=== PATIENT | male | born 1950 | race Caucasian/White ===

== ENCOUNTER 2017-03-17 09:06 | Inpatient (IN) | payer OTHER, MEDICARE ==
[2017-03-17] VITALS (16 sets, daily range): BP systolic 140–162; BP diastolic 75–89; PULSE 76–160; RESP 15–20; TEMP 97.4–98.4; O2SAT 96–99
[~2017-03-17] VITALS: Ht 188 cm; Wt 108.4 kg
[~2017-03-17 09:06] MED LIST: BACT800T5 PO; COLL30OI3 TOP; HYDRA50 PO; LACT PO; LISI-360 PO; LORTA5 PO; METO100 PO; THIA100T PO
[2017-03-17] MEDS ORDERED: AMLO5TAB2 PO (09:24)
[2017-03-17] MEDS ORDERED: HYDR50TA15 PO (09:24)
[2017-03-17] MEDS ORDERED: LISI10TA3 PO (09:24)
[2017-03-17] MEDS ORDERED: DILTIAZEM HCL 25 MG/5 ML VIAL IV ONE (09:30)
[2017-03-17] MEDS ORDERED: SODIUM CHLOR 0.9% 1000 ML INJ 1,000 ML IV ONE ×2 (09:30→10:45)
[2017-03-17] MEDS ORDERED: SODIUM CHLORIDE 0.9% FLUSH 10 ML FLUSH IVF PRN ×2 (09:30)
--- NOTE | 2017-03-17 09:37 | PD ---
HPI Chief Complaint: Seizure Time Seen by Provider: 09:16 Travel History International Travel<30 days: No Contact w/Intl Traveler<30days: No Traveled to known affect area: No History of Present Illness HPI The patient is a 66-year-old male who presents emergency department via EMS for possible seizure. According to EMS the patient was coming into the house, from outside, when the saw the patient followed the ground and have a possible seizure. The states the patient's seizure lasted approximately 10-15 minutes. The states the patient has a history of seizures, was on Neurontin in the past, however, the physician advised in the stop taking it for months ago. The patient does have a history of subdural hemorrhage with subsequent evacuation by Dr. Lucio, according to the , last year. EMS noted that the patient was postictal and also was in atrial fibrillation with RVR. The patient denies any history of A. fib with RVR. Upon arrival the patient is alert and oriented in one out of 4, does follow simple commands. He is a somewhat limited historian, however, history is obtained from the . The and the patient both deny any previous history of atrial fibrillation. The patient's primary physician is Dr. Munoz. [facility] Past Medical History Arthritis: No Asthma: No Blood Disorders: No Heart Rhythm Problems: No Cancer: No Cardiovascular Problems: Yes (HTN ) Chest Pain: No COPD: No Cerebrovascular Accident: No Diabetes: No Endocrine: No GERD: No Genitourinary: No Hypertension: Yes Immune Disorder: No Kidney Stones: No Musculoskeletal: No Neurologic: No Psychiatric: No Reproductive: No Respiratory: Yes Renal Failure: No Seizures: No Sleep Apnea: No Thyroid Disease: No Ulcer: No Past Surgical History Abdominal Surgery: No AICD: No Arteriovenous Shunt: No Cardiac Surgery: No Ear Surgery: No Eye Surgery: No Genitourinary Surgery: No Gynecologic Surgery: No Insulin Pump: No Joint Replacement: No Neurologic Surgery: Yes (BRAIN SURGERY (NOV 2015)) Oral Surgery: Yes (T&A) Pacemaker: No Thoracic Surgery: No Other Surgery: Yes (Brain surgery) Social History Alcohol Use: Yes (10 OZ. 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 fib according to EMS, patient denies history of), No: Chest Pain or Discomfort Respiratory: No: Shortness of Breath Gastrointestinal: No: Nausea, Vomiting, Abdominal Pain Neurologic: Positive: Change in Mentation, Seizures Psychiatric: Positive: Substance Abuse (daily alcohol use, 3-4 drinks per patient) Physical Exam Narrative GENERAL: Awake, alert, 66-year-old male who appears his stated age and is in no acute respiratory distress. SKIN: Focused skin assessment warm/dry. HEAD: Atraumatic. Normocephalic. EYES: Pupils equal and round. Pupils are 3 mm bilateral and reactive. ENT: No nasal bleeding or discharge. Mucous membranes pink and moist. NECK: Trachea midline. No JVD. CARDIOVASCULAR: Irregularly irregular, tachycardic with a heart rate in the 160s. RESPIRATORY: No accessory muscle use. Diminished breath sounds in the bases bilateral. GASTROINTESTINAL: Abdomen soft, non-tender, nondistended. No rebound tenderness. MUSCULOSKELETAL: No obvious deformities. No clubbing. No cyanosis. No edema. Moves all 4 extremities. NEUROLOGICAL: Awake and alert. No obvious cranial nerve deficits. Motor grossly within normal limits. Normal speech. 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 PSYCHIATRIC: Appears postictal. Data Data Last Documented VS Vital Signs Date Time Temp Pulse Resp B/P Pulse Ox O2 Delivery O2 Flow Rate FiO2 03/17/17 10:30 146 15 151/78 96 Nasal Cannula 2 03/17/17 09:15 98.0 Orders Complete Blood Count With Diff (03/17/17 09:30) Alcohol (Ethanol) (03/17/17 09:30) Drug Screen, Random Urine (03/17/17 09:30) Blood Culture (03/17/17 09:30) Electrocardiogram (03/17/17 ) Ct Brain W/O Iv Contrast(Rout) (03/17/17 ) Blood Glucose (03/17/17 09:30) Ecg Monitoring (03/17/17 09:30) Iv Access Insert/Monitor (03/17/17 09:30) Oximetry (03/17/17 09:30) Comprehensive Metabolic Panel (03/17/17 09:30) Sodium Chlor 0.9% 1000 Ml Inj (Ns 1000 M (03/17/17 09:30) Sodium Chloride 0.9% Flush (Ns Flush) (03/17/17 09:30) Ua Includes Microscopic (03/17/17 09:30) Diltiazem Inj (Cardizem Inj) (03/17/17 09:30) Sodium Chloride 0.9% Flush (Ns Flush) (03/17/17 09:30) Lactic Acid (03/17/17 09:30) Diltiazem Inj (Cardizem Inj) (03/17/17 09:30) Chest, Single Ap (03/17/17 ) Troponin I (03/17/17 10:34) Creatine Kinase (Cpk) (03/17/17 10:34) Sodium Chlor 0.9% 1000 Ml Inj (Ns 1000 M (03/17/17 10:45) Lorazepam Inj (Ativan Inj) (03/17/17 10:45) Admit Order (Ed Use Only) (03/17/17 10:58) Diet Npo (03/17/17 Lunch) Vital Signs (Adult) MARK.Q4H (03/17/17 10:55) Neuro Checks . ORDERED (03/17/17 10:55) ^ Seizure Precautions (03/17/17 10:55) Scd Bilateral/Knee High MARK.QSHIFT (03/17/17 10:55) Sodium Chlor 0.9% 1000 Ml Inj (Ns 1000 M (03/17/17 11:00) Ondansetron Inj (Zofran Inj) (03/17/17 11:00) Consult Neurology (03/17/17 ) Echo 2d Comp W/Dopp(Routine) (03/17/17 ) Thyroid Stimulating Hormone (03/17/17 10:55) Basic Metabolic Panel (Bmp) (03/18/17 06:00) Lactic Acid (03/18/17 06:00) Lorazepam Inj (Ativan Inj) (03/17/17 11:00) Labs Laboratory Tests Test 03/17/17 03/17/17 09:35 09:40 White Blood Count 5.8 TH/MM3 Red Blood Count 3.78 MIL/MM3 Hemoglobin 13.9 GM/DL Hematocrit 39.3 % Mean Corpuscular Volume 103.9 FL Mean Corpuscular Hemoglobin 36.7 PG Mean Corpuscular Hemoglobin 35.4 % Concent Red Cell Distribution Width 12.9 % Platelet Count 193 TH/MM3 Mean Platelet Volume 7.9 FL Neutrophils (%) (Auto) 66.1 % Lymphocytes (%) (Auto) 27.1 % Monocytes (%) (Auto) 5.3 % Eosinophils (%) (Auto) 0.8 % Basophils (%) (Auto) 0.7 % Neutrophils # (Auto) 3.8 TH/MM3 Lymphocytes # (Auto) 1.6 TH/MM3 Monocytes # (Auto) 0.3 TH/MM3 Eosinophils # (Auto) 0.0 TH/MM3 Basophils # (Auto) 0.0 TH/MM3 CBC Comment DIFF FINAL Differential Comment Sodium Level 142 MEQ/L Potassium Level 3.4 MEQ/L Chloride Level 106 MEQ/L Carbon Dioxide Level 18.3 MEQ/L Anion Gap 18 MEQ/L Blood Urea Nitrogen 11 MG/DL Creatinine 1.36 MG/DL Estimat Glomerular Filtration 52 ML/MIN Rate Random Glucose 113 MG/DL Calcium Level 9.5 MG/DL Total Bilirubin 0.5 MG/DL Aspartate Amino Transf 35 U/L (AST/SGOT) Alanine Aminotransferase 32 U/L (ALT/SGPT) Alkaline Phosphatase 43 U/L Total Creatine Kinase 99 U/L Troponin I LESS THAN 0.02 NG/ML Total Protein 8.0 GM/DL Albumin 4.1 GM/DL Ethyl Alcohol Level LESS THAN 3 MG/DL Lactic Acid Level 6.9 mmol/L [facility] Medical Decision Making Medical Screen Exam Complete: Yes Emergency Medical Condition: Yes Medical Record Reviewed: Yes Interpretation(s) EKG reveals atrial fibrillation with RVR, rate 160. Last Impressions Head CT 03/17/17 0000 Signed Impressions: Service Date/Time: Friday, March 17, 2017 10:05 - CONCLUSION: 1. Postsurgical changes status post left frontal parietal craniotomy with areas of encephalomalacia now noted. 2. The ventricular system is more prominent no definite acute hydrocephalus or hemorrhage. Kamlesh Birch MD Chest x-ray unremarkable Laboratory Tests Test 03/17/17 03/17/17 09:35 09:40 White Blood Count 5.8 TH/MM3 Red Blood Count 3.78 MIL/MM3 Hemoglobin 13.9 GM/DL Hematocrit 39.3 % Mean Corpuscular Volume 103.9 FL Mean Corpuscular Hemoglobin 36.7 PG Mean Corpuscular Hemoglobin 35.4 % Concent Red Cell Distribution Width 12.9 % Platelet Count 193 TH/MM3 Mean Platelet Volume 7.9 FL Neutrophils (%) (Auto) 66.1 % Lymphocytes (%) (Auto) 27.1 % Monocytes (%) (Auto) 5.3 % Eosinophils (%) (Auto) 0.8 % Basophils (%) (Auto) 0.7 % Neutrophils # (Auto) 3.8 TH/MM3 Lymphocytes # (Auto) 1.6 TH/MM3 Monocytes # (Auto) 0.3 TH/MM3 Eosinophils # (Auto) 0.0 TH/MM3 Basophils # (Auto) 0.0 TH/MM3 CBC Comment DIFF FINAL Differential Comment Sodium Level 142 MEQ/L Potassium Level 3.4 MEQ/L Chloride Level 106 MEQ/L Carbon Dioxide Level 18.3 MEQ/L Anion Gap 18 MEQ/L Blood Urea Nitrogen 11 MG/DL Creatinine 1.36 MG/DL Estimat Glomerular Filtration 52 ML/MIN Rate Random Glucose 113 MG/DL Calcium Level 9.5 MG/DL Total Bilirubin 0.5 MG/DL Aspartate Amino Transf 35 U/L (AST/SGOT) Alanine Aminotransferase 32 U/L (ALT/SGPT) Alkaline Phosphatase 43 U/L Total Protein 8.0 GM/DL Albumin 4.1 GM/DL Ethyl Alcohol Level LESS THAN 3 MG/DL Lactic Acid Level 6.9 mmol/L Differential Diagnosis Differential diagnosis includes subarachnoid hemorrhage, subdural hemorrhage, atrial fibrillation with RVR, holiday heart, seizure, postictal, electrolyte abnormality, alcohol withdrawal. Narrative Course IV was established, labs are drawn and sent, and the patient was placed on cardiac telemetry monitoring and continuous pulse oximetry monitoring. EKG was ordered and interpreted. Chest x-ray was obtained. The patient received Cardizem 20 mg intravenously by EMS prior to arrival, however, continue to have A. fib with RVR. Therefore, patient was administered Cardizem 20 mg intravenously once again and placed on a Cardizem drip with IV fluid bolus. CT of the brain was ordered. CT of the brain was negative except for postoperative changes. Lactic acid is elevated at 6.9, most likely related to the patient's seizure. The patient was placed on a Cardizem drip, was increased to 10 as the patient continued be tachycardic, his heart rate came down into the 120s. The patient may have alcohol withdrawal related seizure with secondary atrial fibrillation with RVR, holiday heart, and will need admission for rate control. As patient has new onset atrial fibrillation with RVR, patient will need echocardiogram, may benefit from CIWA precautions. I discussed the patient with the [facility] physician, Dr. Patel, who agrees with admission. Critical Care Narrative Aggregate critical care time was 40 minutes. Time to perform other separately billable procedures was not included in the critical care time. My time did not include minutes spent treating any other patients simultaneously or on activities that did not directly contribute to the patient's treatment. The services I provided to this patient were to treat and/or prevent clinically significant deterioration that could result in: Arrhythmia, anoxia, hypoxia, cardiomyopathy, congestive heart failure, pulmonary edema, . I provided critical care services requiring my management, as noted below: Chart data review, documentation time, medication orders and management, vital sign assessments/reviewing monitor data, ordering and reviewing lab tests, ordering and interpreting/reviewing x-rays and diagnostic studies, care of the patient and discussion of the patient with the admitting physicians. Physician Communication Physician Communication I discussed the patient with Dr. Patel who agrees with admission. Diagnosis Primary Impression: Atrial fibrillation with rapid ventricular response Additional Impressions: Seizure Lactic acidosis Admitting Information Admitting Physician Requests: Admit Condition: Stable Chase Al MD Mar 17, 2017 09:37
[2017-03-17 10:02] LABS: AUTOMATED NEUTROPHIL # 3.8 TH/MM3 (1.8-7.7); BASOPHIL % 0.7 % (0.0-2.0); EOSINOPHIL % 0.8 % (0.0-4.0); HEMATOCRIT 39.3 % (39.0-51.0); HEMO FLAGS DIFF FINAL; LYMPH % 27.1 % (9.0-44.0); LYMPHOCYTE # 1.6 TH/MM3 (1.0-4.8); MEAN CELL VOLUME 103.9 FL (80.0-100.0); MEAN CORPUSCULAR HEMOGLOBIN 36.7 PG (27.0-34.0); MEAN CORPUSCULAR HGB CONC 35.4 % (32.0-36.0); MONO % 5.3 % (0.0-8.0); NEUT % 66.1 % (16.0-70.0); PLATELET COUNT 193 TH/MM3 (150-450); RED BLOOD COUNT 3.78 MIL/MM3 (4.50-5.90); RED CELL DISTRIBUTION WIDTH 12.9 % (11.6-17.2); WHITE BLOOD COUNT 5.8 TH/MM3 (4.0-11.0)
[2017-03-17] MEDS: DILTIAZEM INJ 125 MG in SODIUM CHLORIDE 0.9% INJ 100 ML IV SCH ×2 (10:04→22:14)
[2017-03-17 10:19] LABS: ALT (GPT) 32 U/L (12-78); ANION GAP 18 MEQ/L (5-15); AST (GOT) 35 U/L (15-37); BICARBONATE 18.3 MEQ/L (21.0-32.0); BLOOD UREA NITROGEN 11 MG/DL (7-18); CHLORIDE 106 MEQ/L (98-107); GLOMERULAR FILTRATION RATE 52 ML/MIN (>89); POTASSIUM 3.4 MEQ/L (3.5-5.1); SODIUM (NA) 142 MEQ/L (136-145)
--- NOTE | 2017-03-17 10:19 | RADRPT ---
EXAM DATE/TIME: 03/17/2017 10:05 [facility] COMPARISON: CT BRAIN W/O CONTRAST, January 24, 2016, 4:25. INDICATIONS : Status changes and possible seizure history of intracranial hemorrhage in January of 2016. RADIATION DOSE: 44.19 CTDIvol (mGy) MEDICAL HISTORY : Cardiovascular disease. Hypertension. SURGICAL HISTORY : brain surgery ENCOUNTER: Initial ACUITY: 1 day PAIN SCALE: 0/10 LOCATION: cranial TECHNIQUE: Multiple contiguous axial images were obtained of the head. Using automated exposure control and adj ustment of the mA and/or kV according to patient size, radiation dose was kept as low as reasonably a chievable to obtain optimal diagnostic quality images. FINDINGS: CEREBRUM: There postsurgical changes status post left frontal parietal craniotomy. There are areas of encephalo malacia involving the left frontal and temporal lobes. Mild to moderate atrophic changes noted with s ulcal prominence. The ventricular system is more prominent than on the prior exam. There is no defini te acute hydrocephalus. No evidence of midline shift, mass lesion, hemorrhage or acute infarction. N o extra-axial fluid collections are seen. POSTERIOR FOSSA: The cerebellum and brainstem are intact. The 4th ventricle is midline. The cerebellopontine angle i s unremarkable. EXTRACRANIAL: The visualized portion of the orbits is intact. SKULL: The calvaria is intact. No evidence of skull fracture. CONCLUSION: 1. Postsurgical changes status post left frontal parietal craniotomy with areas of encephalomalacia n ow noted. 2. The ventricular system is more prominent no definite acute hydrocephalus or hemorrhage. Kamlesh Birch MD on March 17, 2017 at 10:15 Board Certified Radiologist. This report was verified electronically.
[2017-03-17 10:22] LABS: ALKALINE PHOSPHATASE 43 U/L (45-117); TOTAL BILIRUBIN ADULT 0.5 MG/DL (0.2-1.0)
[2017-03-17] MEDS ORDERED: LORazepam 2 MG/ML VIAL IV PUSH ONE (10:45)
[2017-03-17] MEDS ORDERED: LORazepam 2 MG/ML VIAL IV PUSH PRN ×5 (11:00→13:15)
[2017-03-17] MEDS ORDERED: ONDANSETRON HCL 4 MG/2 ML VIAL IV PUSH PRN (11:00)
--- NOTE | 2017-03-17 11:10 | RADRPT ---
EXAM DATE/TIME: 03/17/2017 10:07 [facility] COMPARISON: CHEST SINGLE AP, February 09, 2016, 9:30. INDICATIONS : Chest pain and short of breath. MEDICAL HISTORY : None. SURGICAL HISTORY : None. ENCOUNTER: Initial ACUITY: 1 day PAIN SCORE: 8/10 LOCATION: Bilateral chest FINDINGS: A single view of the chest demonstrates the lungs to be symmetrically aerated without evidence of mas s, infiltrate or effusion. The cardiomediastinal contours are unremarkable. Old injury distal left c lavicle. CONCLUSION: No acute disease. Gildardo Merino MD on March 17, 2017 at 11:07 Board Certified Radiologist. This report was verified electronically.
[2017-03-17 11:22] LABS: CREATINE KINASE 99 U/L (39-308)
[2017-03-17 11:53] LABS: BACTERIA, URINE OCC /hpf; BLOOD, URINE NEG (NEG); GLUCOSE,URINE NEG (NEG); HYALINE CAST, URINE 1 /lpf (RARE); KETONE, URINE 80 mg/dL (NEG); MUCUS URINE FEW /lpf (OCC); NITRITE,URINE NEG (NEG); PH, URINE 5.5 (5.0-8.5); URINE COLOR YELLOW (YELLW/STRAW)
[2017-03-17 11:54] LABS: AMPHETAMINE, URINE NEG (NEG); BARBITURATES, URINE NEG (NEG); COCAINE, URINE NEG (NEG)
[2017-03-17] MEDS: SODIUM CHLOR 0.9% 1000 ML INJ 1,000 ML IV SCH ×2 (11:57→20:52)
--- NOTE | 2017-03-17 13:10 | HHI.HP ---
[facility] Primary Care Physician Luis Felipe Munoz MD Admission Diagnosis atrial fibrillation with RVR, seizure, lactic acidosis Diagnoses: (1) Seizure Diagnosis: Principal (2) Atrial fibrillation with rapid ventricular response Diagnosis: Principal Chief Complaint: ' I had a seizure'. Travel History International Travel<30 Days: No Contact w/Intl Traveler <30 Da: No Traveled to Known Affected Are: No History of Present Illness patient is a 66 y/o male with history of seizure- s/p brain surgery about a year ago, and hypertension, was brought to ER after he had a seizure earlier. according to ER, he was coming back to the house from outside when he had a witnessed seizure. apparently the seizure lasted for about ten minutes. he denies tongue-biting or urinary incontinence.he says that he was on ' seizure medication' till two months ago when he stopped taking it. he was in atrial fibrillation with rapid rate upon arrival to ER. he was awake,alert and oriented at the time of my evaluation. he denies any chest pain or sob. he admits to drinking four glasses of rum daily. Review of Systems Constitutional: DENIES: Fever, Weight loss, Chills, Night Sweats Eyes: DENIES: Blurred vision, Diplopia, Vision loss, Double Vision Ears, nose, mouth, throat: DENIES: Tinnitus, Vertigo, Throat pain, Epistaxis Respiratory: DENIES: Apneas, Cough, Snoring, Wheezing, Hemoptysis, Sputum production, Shortness of breath Cardiovascular: DENIES: Chest pain, Palpitations, Syncope, Dyspnea on Exertion , PND, Lower Extremity Edema, Orthopnea, Claudication Gastrointestinal: DENIES: Abdominal pain, Black stools, Bloody stools, Constipation, Diarrhea, Nausea, Vomiting, Difficulty Swallowing, Anorexia Genitourinary: DENIES: Urinary frequency, Urgency, Hematuria, Dysuria Musculoskeletal: DENIES: Joint pain, Muscle aches, Stiffness, Joint Swelling Integumentary: DENIES: Rash Neurologic: COMPLAINS OF: Seizures, DENIES: Abnormal gait, Headache, Localized weakness, Paresthesias, Speech Problems, Tremor, Poor Balance Psychiatric: DENIES: Anxiety, Confusion, Mood changes, Depression, Hallucinations, Agitation, Suicidal Ideation, Homicidal Ideation, Delusions Past Family Social History Past Medical History seizure hypertension Past Surgical History brain surgery; evacuation of intracerebral hematoma Reported Medications Lisinopril 10 Mg Tab 10 Mg PO BID Hydralazine (Hydralazine HCl) 50 Mg Tab 50 Mg PO TID Take with a meal Amlodipine (Amlodipine Besylate) 5 Mg Tab 5 Mg PO DAILY Allergies: Coded Allergies: *MDRO Multi-Drug Resistant Organism (Verified Adverse Reaction, Unknown, ) MRSA (ankle-08/23/16) Active Ordered Medications Current Medications Sodium Chloride (NS 1000 ml Inj) 1,000 ml @ 1,000 mls/hr Q1H ONCE IV Last administered on 03/17/17 09:43; Start 03/17/17 at 09:30; Stop 03/17/17 at 10:29 ; Status DC Sodium Chloride 2 ml 2 ml UNSCH PRN IVF FLUSH AFTER USING IV ACCESS; Start at 09:30 Diltiazem HCl/ Sodium Chloride (Cardizem Inj/NS Inj) 125 ml @ 0 mls/hr TITRATE IV Last administered on 03/17/17 10:04; Start 03/17/17 at 09:30 Sodium Chloride (NS Flush) 2 ml UNSCH PRN IVF FLUSH AFTER USING IV ACCESS; Start 03/17/17 at 09:30 Diltiazem HCl 20 mg 20 mg ONCE ONCE IV Last administered on 03/17/17 09:43; Start 03/17/17 at 09:30; Stop 03/17/17 at 09:33; Status DC Sodium Chloride (NS 1000 ml Inj) 1,000 ml @ 999 mls/hr BOLUS ONCE IV Last administered on 03/17/17 10:44; Start 03/17/17 at 10:45; Stop 03/17/17 at 11:45 ; Status DC Lorazepam 1 mg 1 mg ONCE ONCE IV PUSH Last administered on 03/17/17 10:44; Start 03/17/17 at 10:45; Stop 03/17/17 at 10:46; Status DC Sodium Chloride (NS 1000 ml Inj) 1,000 ml @ 100 mls/hr Q10H IV Last administered on 03/17/17 11:57; Start 03/17/17 at 11:00 Ondansetron HCl (Zofran Inj) 4 mg Q8HR PRN IV PUSH NAUSEA; Start 03/17/17 at 11 :00 Lorazepam (Ativan Inj) 1 mg Q15M PRN IV PUSH SEIZURE; Start 03/17/17 at 11:00 Family History not significant. Social History doesn't smoke.drinks four glasses of rum daily. Physical Exam Vital Signs Vital Signs Date Time Temp Pulse Resp B/P Pulse Ox O2 Delivery O2 Flow Rate FiO2 03/17/17 11:30 120 16 162/80 98 Nasal Cannula 2 03/17/17 10:30 146 15 151/78 96 Nasal Cannula 2 03/17/17 09:24 97 Nasal Cannula 2 03/17/17 09:18 97 Nasal Cannula 2 03/17/17 09:18 150 16 97 Nasal Cannula 2 03/17/17 09:15 98.0 160 16 146/89 98 Physical Exam GENERAL: This is a well-nourished, well-developed patient, in no apparent distress. SKIN: No rashes, ecchymoses or lesions. Cool and dry. HEAD: Atraumatic. Normocephalic. No temporal or scalp tenderness. EYES: Pupils equal round and reactive. Extraocular motions intact. No scleral icterus. No injection or drainage. ENT: Nose without bleeding, purulent drainage or septal hematoma. Throat without erythema, tonsillar hypertrophy or exudate. Uvula midline. Airway patent. NECK: Trachea midline. No JVD or lymphadenopathy. Supple, nontender, no meningeal signs. CARDIOVASCULAR:irregular- tachycardic RESPIRATORY: Clear to auscultation. Breath sounds equal bilaterally. No wheezes , rales, or rhonchi. GASTROINTESTINAL: Abdomen soft, non-tender, nondistended. No hepato-splenomegaly , or palpable masses. No guarding. MUSCULOSKELETAL: Extremities without clubbing, cyanosis, or edema. No joint tenderness, effusion, or edema noted. No calf tenderness. Negative Homans sign bilaterally. NEUROLOGICAL: Awake and alert. Cranial nerves II through XII intact. Motor and sensory grossly within normal limits. Five out of 5 muscle strength in all muscle groups. Normal speech. Laboratory Laboratory Tests Test 03/17/17 03/17/17 03/17/17 09:35 09:40 11:30 White Blood Count 5.8 Red Blood Count 3.78 Hemoglobin 13.9 Hematocrit 39.3 Mean Corpuscular Volume 103.9 Mean Corpuscular Hemoglobin 36.7 Mean Corpuscular Hemoglobin 35.4 Concent Red Cell Distribution Width 12.9 Platelet Count 193 Mean Platelet Volume 7.9 Neutrophils (%) (Auto) 66.1 Lymphocytes (%) (Auto) 27.1 Monocytes (%) (Auto) 5.3 Eosinophils (%) (Auto) 0.8 Basophils (%) (Auto) 0.7 Neutrophils # (Auto) 3.8 Lymphocytes # (Auto) 1.6 Monocytes # (Auto) 0.3 Eosinophils # (Auto) 0.0 Basophils # (Auto) 0.0 CBC Comment DIFF FINAL Differential Comment Sodium Level 142 Potassium Level 3.4 Chloride Level 106 Carbon Dioxide Level 18.3 Anion Gap 18 Blood Urea Nitrogen 11 Creatinine 1.36 Estimat Glomerular Filtration 52 Rate Random Glucose 113 Calcium Level 9.5 Total Bilirubin 0.5 Aspartate Amino Transf 35 (AST/SGOT) Alanine Aminotransferase 32 (ALT/SGPT) Alkaline Phosphatase 43 Total Creatine Kinase 99 Troponin I LESS THAN 0.02 Total Protein 8.0 Albumin 4.1 Ethyl Alcohol Level LESS THAN 3 Lactic Acid Level 6.9 Urine Color YELLOW Urine Turbidity CLEAR Urine pH 5.5 Urine Specific [place] 1.013 Urine Protein TRACE Urine Glucose (UA) NEG Urine Ketones 80 Urine Occult Blood NEG Urine Nitrite NEG Urine Bilirubin NEG Urine Urobilinogen LESS THAN 2.0 Urine Leukocyte Esterase NEG Urine RBC LESS THAN 1 Urine WBC 1 Urine Bacteria OCC Urine Hyaline Casts 1 Urine Mucus FEW Urine Sperm RARE Urine Opiates Screen NEG Urine Barbiturates Screen NEG Urine Amphetamines Screen NEG Urine Benzodiazepines Screen NEG Urine Cocaine Screen NEG Urine Cannabinoids Screen NEG Date/Time Procedure Status Source Growth 03/17/17 09:40 Aerobic Blood Culture Received Blood Peripheral Pending 03/17/17 09:40 Anaerobic Blood Culture Received Blood Peripheral Pending Result Diagram: 03/17/17 0935 03/17/1735 Imaging Last Impressions Head CT 03/17/17 0000 Signed Impressions: Service Date/Time: Friday, March 17, 2017 10:05 - CONCLUSION: 1. Postsurgical changes status post left frontal parietal craniotomy with areas of encephalomalacia now noted. 2. The ventricular system is more prominent no definite acute hydrocephalus or hemorrhage. Kamlesh Birch MD Chest X-Ray 03/17/17 0000 Signed Impressions: Service Date/Time: Friday, March 17, 2017 10:07 - CONCLUSION: No acute disease. Gildardo Merino MD EKG; atrial fibrillation with rapid ventricular response Assessment and Plan Assessment and Plan A/P - possible seizure with history of brain surgery about a year ago and history of alcohol abuse continue with seizure precautions- consult neurology- check EEG- ativan as needed -atrial fibrillation with rapid ventricular response started on Cardizem drip- start on PO metoprolol and continue to monitor - check echo and TSH- consult cardiology. -lactic acidosis- likely due to seizure- will continue IV fluid- -acute kidney injury; started on IV fluid- will monitor the renal function; BMP in am. -alcohol abuse; start on CIWA protocol- watch for alcohol withdrawal- -mild hypokalemia; will replace and monitor. -hypertension; will start on metoprolol- hold home BP meds for now. -DVT prophylaxis with SCD's Discussed Condition With the patient and RN. Physician Certification 2 Midnight Certification Type: Admission for Inpatient Services Order for Inpatient Services The services are ordered in accordance with Medicare regulations or non- Medicare payer requirements, as applicable. In the case of services not specified as inpatient-only, they are appropriately provided as inpatient services in accordance with the 2-midnight benchmark. Estimated LOS (days): 2 days is the estimated time the patient will need to remain in the hospital, assuming treatment plan goals are met and no additional complications. Post-Hospital Plan: Home Mitul Patel MD Mar 17, 2017 13:10
[2017-03-17] MEDS ORDERED: FLUMAZENIL 0.5 MG/5 ML VIAL IV PUSH PRN (13:15)
[2017-03-17] MEDS ORDERED: LORazepam 2 MG TAB PO PRN (13:15)
[2017-03-17] MEDS ORDERED: LORazepam 1 MG TAB PO PRN (13:15)
[2017-03-17] MEDS ORDERED: POTASSIUM CHLORIDE 20 MEQ CONTROLLED RELEASE TAB PO ONE (13:15)
[2017-03-17] MEDS: METOPROLOL TARTRATE 25 MG TAB PO SCH ×2 (14:43→20:52)
[2017-03-17] MEDS: THIAMINE HCL 100 MG TAB PO SCH (14:43)
--- NOTE | 2017-03-17 18:10 | PD.CONS ---
HPI Service Cardiology Consult Requested By Reason for Consult Afib Primary Care Physician Luis Felipe Munoz MD History of Present Illness 66 y/o gentleman with pmhx significant for HTN, alcoholism, brain surgery in the setting of trauma/fall that presented after witness seizure episode. According to seizure lasted about 10minutes. In the ER EKG revealed atrial fibrillation with rapid rate upon arrival. He was started on Cardizem drip. He denies CV complaints. He was consulted to Cardiology fo Afib management. Review of Systems Consitutional: DENIES: Fatigue, Fever, Chills, Weight gain, Weight loss Eyes: COMPLAINS OF: Amaurosis Fugax, Change in vision HEENT: DENIES: Lightheadedness, Change in hearing Respiratory: DENIES: See HPI, Cough, Snoring, Shortness of breath, Wheezing, Sputum production Cardiovascular: DENIES: See HPI, Chest pain, Palpitations, Syncope, Tachycardia Gastrointestinal: DENIES: Nausea, Vomiting, Change in bowel habits, Reflux, Bloody stools, Melena Genitourinary: DENIES: Urinary incontinence, Difficulty voiding Integumentary: DENIES: Rash Neurologic: DENIES: Tingling or numbness, Memory problems, Poor Balance, Stroke symptoms Musculoskeletal: DENIES: Joint pain, Muscle pain, Limited range of motion, Back pain Psychiatric: DENIES: Anxiety, Depression, Sleep disturbances Hematologic: DENIES: Bruising tendencies, Bleeding tendencies Endocrine: DENIES: Weight gain, Weight loss, Thyroid disease Past Family Social History Allergies: Coded Allergies: *MDRO Multi-Drug Resistant Organism (Verified Adverse Reaction, Unknown, ) MRSA (ankle-08/23/16) Past Medical History seizure hypertension intracerebral hematoma Alcohol abuse Past Surgical History brain surgery; evacuation of intracerebral hematoma Reported Medications Reported Meds & Active Scripts Active Reported Lisinopril 10 Mg Tab 10 Mg PO BID Hydralazine (Hydralazine HCl) 50 Mg Tab 50 Mg PO TID Take with a meal Amlodipine (Amlodipine Besylate) 5 Mg Tab 5 Mg PO DAILY Active Ordered Medications Current Medications Medications (Trade) Dose Ordered Sig/Janessa Route Start Time Stop Time Status Last Admin Sodium Chloride 2 ml 2 ml UNSCH PRN IVF 03/17/17 09:30 (Cardizem Inj/NS Inj) 125 ml @ 0 mls/hr TITRATE IV 03/17/17 09:30 03/17/17 10:04 Sodium Chloride 2 ml 2 ml UNSCH PRN IVF 03/17/17 09:30 (NS 1000 ml Inj) 1,000 ml @ 100 mls/hr Q10H IV 03/17/17 11:00 03/17/17 11:57 (Zofran Inj) 4 mg Q8HR PRN IV PUSH 03/17/17 11:00 (Ativan Inj) 1 mg Q15M PRN IV PUSH 03/17/17 11:00 (Lopressor) 25 mg Q12HR PO 03/17/17 13:00 03/17/17 14:43 (Romazicon Inj) 0.2 mg Q1M PRN IV PUSH 03/17/17 13:15 (Ativan) 1 mg Q4H PRN PO 03/17/17 13:15 (Ativan Inj) 1 mg Q4H PRN IV PUSH 03/17/17 13:15 (Ativan) 2 mg Q2H PRN PO 03/17/17 13:15 (Ativan Inj) 2 mg Q2H PRN IV PUSH 03/17/17 13:15 (Ativan Inj) 2 mg Q1H PRN IV PUSH 03/17/17 13:15 (Ativan Inj) 2 mg Q15M PRN IV PUSH 03/17/17 13:15 (Vitamin B1) 100 mg DAILY PO 03/17/17 13:15 03/17/17 14:43 (Theragran) 1 tab DAILY PO 03/18/17 09:00 Social History +Alcohol Physical Exam Vital Signs Vital Signs Date Time Temp Pulse Resp B/P Pulse Ox O2 Delivery O2 Flow Rate FiO2 03/17/17 17:09 85 03/17/17 16:17 85 03/17/17 15:26 89 03/17/17 15:26 98.4 89 18 141/87 99 03/17/17 14:30 94 15 149/76 98 Nasal Cannula 2 03/17/17 13:30 96 16 160/77 98 Nasal Cannula 2 03/17/17 12:30 108 16 150/80 97 Nasal Cannula 2 03/17/17 11:30 120 16 162/80 98 Nasal Cannula 2 03/17/17 10:30 146 15 151/78 96 Nasal Cannula 2 03/17/17 09:24 97 Nasal Cannula 2 03/17/17 09:18 97 Nasal Cannula 2 03/17/17 09:18 150 16 97 Nasal Cannula 2 03/17/17 09:15 98.0 160 16 146/89 98 Physical Exam GENERAL: Well-nourished, well-developed patient. SKIN: Warm and dry. HEAD: Normocephalic. EYES: No scleral icterus. No injection or drainage. NECK: Supple, trachea midline. No JVD or lymphadenopathy. CARDIOVASCULAR: Irr Irr No murmurs, gallops, or rubs. RESPIRATORY: Breath sounds equal bilaterally. No accessory muscle use. GASTROINTESTINAL: Abdomen soft, non-tender, nondistended. EXTREMITIES: No cyanosis, or edema. Laboratory Laboratory Tests Test 03/17/17 03/17/17 03/17/17 09:35 09:40 11:30 White Blood Count 5.8 Red Blood Count 3.78 Hemoglobin 13.9 Hematocrit 39.3 Mean Corpuscular Volume 103.9 Mean Corpuscular Hemoglobin 36.7 Mean Corpuscular Hemoglobin 35.4 Concent Red Cell Distribution Width 12.9 Platelet Count 193 Mean Platelet Volume 7.9 Neutrophils (%) (Auto) 66.1 Lymphocytes (%) (Auto) 27.1 Monocytes (%) (Auto) 5.3 Eosinophils (%) (Auto) 0.8 Basophils (%) (Auto) 0.7 Neutrophils # (Auto) 3.8 Lymphocytes # (Auto) 1.6 Monocytes # (Auto) 0.3 Eosinophils # (Auto) 0.0 Basophils # (Auto) 0.0 CBC Comment DIFF FINAL Differential Comment Sodium Level 142 Potassium Level 3.4 Chloride Level 106 Carbon Dioxide Level 18.3 Anion Gap 18 Blood Urea Nitrogen 11 Creatinine 1.36 Estimat Glomerular Filtration 52 Rate Random Glucose 113 Calcium Level 9.5 Total Bilirubin 0.5 Aspartate Amino Transf 35 (AST/SGOT) Alanine Aminotransferase 32 (ALT/SGPT) Alkaline Phosphatase 43 Total Creatine Kinase 99 Troponin I LESS THAN 0.02 Total Protein 8.0 Albumin 4.1 Thyroid Stimulating Hormone 1.930 3rd Gen Ethyl Alcohol Level LESS THAN 3 Lactic Acid Level 6.9 Urine Color YELLOW Urine Turbidity CLEAR Urine pH 5.5 Urine Specific [place] 1.013 Urine Protein TRACE Urine Glucose (UA) NEG Urine Ketones 80 Urine Occult Blood NEG Urine Nitrite NEG Urine Bilirubin NEG Urine Urobilinogen LESS THAN 2.0 Urine Leukocyte Esterase NEG Urine RBC LESS THAN 1 Urine WBC 1 Urine Bacteria OCC Urine Hyaline Casts 1 Urine Mucus FEW Urine Sperm RARE Urine Opiates Screen NEG Urine Barbiturates Screen NEG Urine Amphetamines Screen NEG Urine Benzodiazepines Screen NEG Urine Cocaine Screen NEG Urine Cannabinoids Screen NEG Date/Time Procedure Status Source Growth 03/17/17 09:40 Aerobic Blood Culture Received Blood Peripheral Pending 03/17/17 09:40 Anaerobic Blood Culture Received Blood Peripheral Pending Result Diagram: 03/17/17 0935 03/17/17 0935 Imaging Last Impressions Head CT 03/17/17 0000 Signed Impressions: Service Date/Time: Friday, March 17, 2017 10:05 - CONCLUSION: 1. Postsurgical changes status post left frontal parietal craniotomy with areas of encephalomalacia now noted. 2. The ventricular system is more prominent no definite acute hydrocephalus or hemorrhage. Kamlesh Birch MD Chest X-Ray 03/17/17 0000 Signed Impressions: Service Date/Time: Friday, March 17, 2017 10:07 - CONCLUSION: No acute disease. Gildardo Merino MD Assessment and Plan Problem List: (1) Atrial fibrillation with rapid ventricular response Assessment and Plan: 66 y/o M admitted after seizure episode in the setting of alcohol withdrawal vs old brain trauma and with atrial fibrillation with RVR. He remains afebrile and hemodynamically stable. No CV complaints. On CIWA protocol. Rate better controlled in Cardizem drip. Recommendations: Cycle cardiac markersx3 Telemetry monitoring Transition to PO Cardizem and wean Cardizem drip as Tolerated Get 2 D-echocardiogram [id number] = 2 oral anticoagulation strongly recommended if no contraindications Avoid electrolytes abnormalities Neuro to follow EEG Thank you for the opportunity to participate in the care of this patient (2) Seizure (3) Alcohol withdrawal Felipe Cartwright MD Mar 17, 2017 18:10
--- NOTE | 2017-03-17 18:34 | MG ---
cc: MACARIO FLORES M.D. Lab No: Date: 03/17/2017 Age: Sex: M Race: TEST NUMBER [id number] TECHNIQUE 17 channel EEG. DESCRIPTION The background rhythm reveals a symmetrical alpha rhythm with a frequency of about 8 Hz. Amplitude is 10-20 microvolts. No lateralizing features identified and no epileptiform features are seen. During drowsiness there is mild slowing in the theta range. Occasional muscle artifact identified. Photic stimulation results in a normal driving response. INTERPRETATION Normal EEG. MD KORI Auguste/KK /5:09 PM /6:32 PM
[2017-03-18] VITALS (23 sets, daily range): BP systolic 119–163; BP diastolic 66–93; PULSE 51–78; RESP 18–20; TEMP 97.6–99; O2SAT 94–99
[2017-03-18 05:34] LABS: BICARBONATE 22.8 MEQ/L (21.0-32.0); POTASSIUM 3.4 MEQ/L (3.5-5.1)
[2017-03-18] MEDS: SODIUM CHLOR 0.9% 1000 ML INJ 1,000 ML IV SCH ×2 (07:00→17:00)
[2017-03-18] MEDS: MULTIVITAMIN TAB PO SCH (08:43)
[2017-03-18] MEDS: METOPROLOL TARTRATE 25 MG TAB PO SCH ×2 (08:43→22:11)
[2017-03-18] MEDS: THIAMINE HCL 100 MG TAB PO SCH (08:43)
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
--- NOTE | 2017-03-18 09:27 | EC ---
Study Study Date:03/17/2017 STUDY CONCLUSIONS SUMMARY - Left ventricle: The cavity size was normal. Wall thickness was increased in a pattern of mild LVH. Systolic function was normal. The estimated ejection fraction was 65%. Wall motion was normal; there were no regional wall motion abnormalities. - Left atrium: The atrium was mildly dilated. - Right ventricle: The cavity size was mildly dilated. Wall thickness was normal. If LV function is below 40, please consider prescribing an ACEI or ARB or document rationale for non-use. PROCEDURE DATA STUDY STATUS: Elective. Procedure: Transthoracic echocardiography. Image quality was good. Scanning was performed from the parasternal, apical, and subcostal acoustic windows. Study completion: The patient tolerated the procedure well. Transthoracic echocardiography. M-mode, complete 2D, complete spectral Doppler, and color Doppler. Height: Height: 74in. Weight: Weight: 219.5lb. Body mass index: BMI: 28.2kg/m^2. Body surface area: BSA: 2.26m^2. Patient status: Inpatient. CARDIAC ANATOMY LEFT VENTRICLE: The cavity size was normal. Wall thickness was increased in a pattern of mild LVH. Systolic function was normal. The estimated ejection fraction was 65%. Wall motion was normal; there were no regional wall motion abnormalities. AORTIC VALVE: Trileaflet; normal thickness leaflets. Doppler: Transvalvular velocity was within the normal range. There was no stenosis. No regurgitation. AORTA: Aortic root: The aortic root was normal in size. MITRAL VALVE: Structurally normal valve. Doppler: Transvalvular velocity was within the normal range. There was no evidence for stenosis. Trace regurgitation. Valve area by pressure half-time: 5.79cm^2. Indexed valve area by pressure half-time: 2.56cm^2/m^2. LEFT ATRIUM: The atrium was mildly dilated. RIGHT VENTRICLE: The cavity size was mildly dilated. Wall thickness was normal. PULMONIC VALVE: Doppler: Transvalvular velocity was within the normal range. There was no evidence for stenosis. No regurgitation. TRICUSPID VALVE: Structurally normal valve. Doppler: Transvalvular velocity was within the normal range. Trace regurgitation. Peak gradient: 27mm Hg (D). PULMONARY ARTERY: The main pulmonary artery was normal-sized. Systolic pressure was within the normal range. RIGHT ATRIUM: The atrium was normal in size. PERICARDIUM: There was no pericardial effusion. SYSTEMIC VEINS: Inferior vena cava: The vessel was normal in size. Patient weight: 219.5lb _Ejection fraction:_ 65-75% _Fractional shortening:_ 32% up to 5Kg 5-11.5Kg 11.6-22.9Kg 23-45Kg 45-57Kg Aortic Root 7-13 <17 13-22 17-27 17-27 LA diam 6-13 <23 24-38 33-47 37-40 RVID 10-17 7-15 7-15 7-18 8-17 LVIDd 12-22 <32 24-38 33-47 37-40 LVPW 2-4 3-6 5-7 6-8 7-8 IVS 2-4 3-6 5-7 6-8 7-8 BASIC MEASUREMENTS ADULT NORMAL Left ventricle LV internal dimension, ED, chordal 45.4 mm 43-52 level, PLAX LV internal dimension, ES, chordal 28.9 mm 23-38 level, PLAX Fractional shortening, chordal level, 36 % >29 PLAX LV posterior wall thickness, ED 11.6 mm IVS/LVPW ratio, ED 1 <1.3 Volume, ED, MOD, 1-plane 59 ml Volume, ES, MOD, 1-plane 26 ml Ejection fraction, MOD, 1-plane 56 % Stroke volume, MOD, 1-plane 33 ml Volume index, ED, MOD, 1-plane 26 ml/m^2 Volume index, ES, MOD, 1-plane 12 ml/m^2 Stroke index, MOD, 1-plane 14.6 ml/m^2 Ventricular septum Septal thickness, ED 11.6 mm Aortic valve Leaflet separation 22 mm 15-26 Left atrium Anterior-posterior dimension 44 mm Anterior-posterior dimension index 1.95 cm/m^2 <2.2 Right ventricle RV internal dimension, ED, PLAX 33.9 mm 19-38 BASIC MEASUREMENTS ADULT NORMAL Aortic valve Leaflet separation 22 mm 15-26 Aorta Root diameter, ED 30 mm 20-37 DOPPLER MEASUREMENTS ADULT NORMAL Aortic valve Peak velocity, S 134 cm/s Mitral valve Pressure half-time 38 ms Valve area, pressure half-time 5.79 cm^2 Valve area index, pressure half-time 2.56 cm^2/m^2 Tricuspid valve Peak gradient, D 27 mm Hg Maximal inflow velocity 262 cm/s Systemic veins Estimated CVP 10 mm Hg Pulmonic valve Peak velocity, S 118 cm/s LEGEND: Mean values are shown as u=mean value. Asterisk (*) jordan values outside specified normal range. Prepared and signed by Malik Conway [id number]
--- NOTE | 2017-03-18 10:41 | HHI.PR ---
Subjective Remarks overall doing fine. no seizures over night. off the cardizem drip. no chest pain or sob. d/w the RN. d/w . Objective Vitals Vital Signs Date Time Temp Pulse Resp B/P Pulse Ox O2 Delivery O2 Flow Rate FiO2 03/18/17 08:15 Room Air 03/18/17 06:00 73 03/18/17 05:00 51 03/18/17 04:00 51 03/18/17 03:00 58 03/18/17 03:00 Room Air 94 03/18/17 03:00 97.8 55 20 131/66 94 03/18/17 02:00 56 03/18/17 01:00 56 03/18/17 00:00 76 03/18/17 00:00 97.6 78 20 119/74 96 03/17/17 23:00 76 03/17/17 23:00 96 Nasal Cannula 2.00 03/17/17 22:00 90 03/17/17 21:00 88 03/17/17 20:00 98 03/17/17 20:00 96 Nasal Cannula 2.00 03/17/17 20:00 97.4 91 20 140/75 96 03/17/17 19:00 93 03/17/17 18:01 97 03/17/17 17:09 85 03/17/17 16:17 85 03/17/17 15:26 89 03/17/17 15:26 98.4 89 18 141/87 99 03/17/17 14:30 94 15 149/76 98 Nasal Cannula 2 03/17/17 13:30 96 16 160/77 98 Nasal Cannula 2 03/17/17 12:30 108 16 150/80 97 Nasal Cannula 2 03/17/17 11:30 120 16 162/80 98 Nasal Cannula 2 I/O 03/17/17 03/17/17 03/17/17 03/18/17 03/18/17 03/18/17 07:00 15:00 23:00 07:00 15:00 23:00 Intake Total 240 ml 1431 ml Output Total 500 ml 575 ml Balance -260 ml 856 ml Intake Oral 240 ml 240 ml IV Total 1191 ml Output Urine Total 500 ml 575 ml # Bowel Movements 0 Result Diagram: 03/17/17 0935 03/18/17 0506 Imaging Last Impressions Head CT 03/17/17 0000 Signed Impressions: Service Date/Time: Friday, March 17, 2017 10:05 - CONCLUSION: 1. Postsurgical changes status post left frontal parietal craniotomy with areas of encephalomalacia now noted. 2. The ventricular system is more prominent no definite acute hydrocephalus or hemorrhage. Kamlesh Birch MD Chest X-Ray 03/17/17 0000 Signed Impressions: Service Date/Time: Friday, March 17, 2017 10:07 - CONCLUSION: No acute disease. Gildardo Merino MD Objective Remarks GENERAL: This is a well-nourished, well-developed patient, in no apparent distress. CARDIOVASCULAR: irregular rhythm without murmurs, gallops, or rubs. RESPIRATORY: Clear to auscultation. Breath sounds equal bilaterally. No wheezes , rales, or rhonchi. GASTROINTESTINAL: Abdomen soft, non-tender, nondistended. Normal, active bowel sounds MUSCULOSKELETAL: Extremities without clubbing, cyanosis, or edema. NEURO: Alert & Oriented x4 to person, place, time, situation. Moves all ext x4 Procedures none Medications and IVs Current Medications Sodium Chloride (NS 1000 ml Inj) 1,000 ml @ 1,000 mls/hr Q1H ONCE IV Last administered on 03/17/17 09:43; Start 03/17/17 at 09:30; Stop 03/17/17 at 10:29 ; Status DC Sodium Chloride 2 ml 2 ml UNSCH PRN IVF FLUSH AFTER USING IV ACCESS; Start at 09:30 Diltiazem HCl/ Sodium Chloride (Cardizem Inj/NS Inj) 125 ml @ 0 mls/hr TITRATE IV Last administered on 03/17/17 22:14; Start 03/17/17 at 09:30; Stop at 02:07; Status DC Sodium Chloride (NS Flush) 2 ml UNSCH PRN IVF FLUSH AFTER USING IV ACCESS; Start 03/17/17 at 09:30 Diltiazem HCl 20 mg 20 mg ONCE ONCE IV Last administered on 03/17/17 09:43; Start 03/17/17 at 09:30; Stop 03/17/17 at 09:33; Status DC Sodium Chloride (NS 1000 ml Inj) 1,000 ml @ 999 mls/hr BOLUS ONCE IV Last administered on 03/17/17 10:44; Start 03/17/17 at 10:45; Stop 03/17/17 at 11:45 ; Status DC Lorazepam 1 mg 1 mg ONCE ONCE IV PUSH Last administered on 03/17/17 10:44; Start 03/17/17 at 10:45; Stop 03/17/17 at 10:46; Status DC Sodium Chloride (NS 1000 ml Inj) 1,000 ml @ 100 mls/hr Q10H IV Last administered on 03/18/17 07:00; Start 03/17/17 at 11:00 Ondansetron HCl (Zofran Inj) 4 mg Q8HR PRN IV PUSH NAUSEA; Start 03/17/17 at 11 :00 Lorazepam (Ativan Inj) 1 mg Q15M PRN IV PUSH SEIZURE; Start 03/17/17 at 11:00 Metoprolol Tartrate (Lopressor) 25 mg Q12HR PO Last administered on 03/18/17 08:43; Start 03/17/17 at 13:00 Flumazenil (Romazicon Inj) 0.2 mg Q1M PRN IV PUSH SEE LABEL COMMENTS; Start at 13:15 Lorazepam (Ativan) 1 mg Q4H PRN PO CIWA 8 - 10; Start 03/17/17 at 13:15 Lorazepam (Ativan Inj) 1 mg Q4H PRN IV PUSH CIWA 8 - 10; Start 03/17/17 at 13: 15 Lorazepam (Ativan) 2 mg Q2H PRN PO CIWA 11-14; Start 03/17/17 at 13:15 Lorazepam (Ativan Inj) 2 mg Q2H PRN IV PUSH CIWA 11-14; Start 03/17/17 at 13:15 Lorazepam (Ativan Inj) 2 mg Q1H PRN IV PUSH CIWA 15-20; Start 03/17/17 at 13:15 Lorazepam (Ativan Inj) 2 mg Q15M PRN IV PUSH CIWA > 20; Start 03/17/17 at 13:15 Thiamine HCl (Vitamin B1) 100 mg DAILY PO Last administered on 03/18/17 08:43 ; Start 03/17/17 at 13:15 Multivitamins (Theragran) 1 tab DAILY PO Last administered on 03/18/17 08:43; Start 03/18/17 at 09:00 Potassium Chloride (KCl) 20 meq ONCE ONCE PO Last administered on 03/17/17 14 :43; Start 03/17/17 at 13:15; Stop 03/17/17 at 14:00; Status DC A/P Assessment and Plan A/P - possible seizure with history of brain surgery about a year ago and history of alcohol abuse continue with seizure precautions- EEG normal. suspect alcohol-related; no antiepileptics at this time. -atrial fibrillation with rapid ventricular response- now HR better. off Cardizem drip- start on PO metoprolol and continue to monitor - echo with EF 65% and no regional wall motion abnormalities. -lactic acidosis- likely due to seizure- resolved. follow the blood cultures. -acute kidney injury; resolved. -alcohol abuse; start on CIWA protocol- watch for alcohol withdrawal- -mild hypokalemia; replaced. -hypertension; continue metoprolol -DVT prophylaxis with SCD's -consult PT. Discharge Planning dc home tomorrow if stable. Mitul Patel MD Mar 18, 2017 10:41
[2017-03-18] MEDS ORDERED: POTASSIUM CHLORIDE 10 MEQ CONTROLLED RELEASE TAB PO ONE (10:45)
--- NOTE | 2017-03-18 10:56 | PD.CARD.PN ---
Subjective Subjective Remarks no complaints telemetry rate control Objective Medications Current Medications Medications (Trade) Dose Ordered Sig/Janessa Route Start Time Stop Time Status Last Admin (NS Flush) 2 ml UNSCH PRN IVF 03/17/17 09:30 Sodium Chloride 2 ml 2 ml UNSCH PRN IVF 03/17/17 09:30 (NS 1000 ml Inj) 1,000 ml @ 100 mls/hr Q10H IV 03/17/17 11:00 03/18/17 07:00 (Zofran Inj) 4 mg Q8HR PRN IV PUSH 03/17/17 11:00 (Ativan Inj) 1 mg Q15M PRN IV PUSH 03/17/17 11:00 (Lopressor) 25 mg Q12HR PO 03/17/17 13:00 03/18/17 08:43 (Romazicon Inj) 0.2 mg Q1M PRN IV PUSH 03/17/17 13:15 (Ativan) 1 mg Q4H PRN PO 03/17/17 13:15 (Ativan Inj) 1 mg Q4H PRN IV PUSH 03/17/17 13:15 (Ativan) 2 mg Q2H PRN PO 03/17/17 13:15 (Ativan Inj) 2 mg Q2H PRN IV PUSH 03/17/17 13:15 (Ativan Inj) 2 mg Q1H PRN IV PUSH 03/17/17 13:15 (Ativan Inj) 2 mg Q15M PRN IV PUSH 03/17/17 13:15 (Vitamin B1) 100 mg DAILY PO 03/17/17 13:15 03/18/17 08:43 (Theragran) 1 tab DAILY PO 03/18/17 09:00 03/18/17 08:43 (KCl) 30 meq ONCE ONCE PO 03/18/17 10:45 03/18/17 10:46 Vital Signs / I&O Vital Signs Date Time Temp Pulse Resp B/P Pulse Ox O2 Delivery O2 Flow Rate FiO2 03/18/17 08:15 Room Air 03/18/17 06:00 73 03/18/17 05:00 51 03/18/17 04:00 51 03/18/17 03:00 58 03/18/17 03:00 Room Air 94 03/18/17 03:00 97.8 55 20 131/66 94 03/18/17 02:00 56 03/18/17 01:00 56 03/18/17 00:00 76 03/18/17 00:00 97.6 78 20 119/74 96 03/17/17 23:00 76 03/17/17 23:00 96 Nasal Cannula 2.00 03/17/17 22:00 90 03/17/17 21:00 88 03/17/17 20:00 98 03/17/17 20:00 96 Nasal Cannula 2.00 03/17/17 20:00 97.4 91 20 140/75 96 03/17/17 19:00 93 03/17/17 18:01 97 03/17/17 17:09 85 03/17/17 16:17 85 03/17/17 15:26 89 03/17/17 15:26 98.4 89 18 141/87 99 03/17/17 14:30 94 15 149/76 98 Nasal Cannula 2 03/17/17 13:30 96 16 160/77 98 Nasal Cannula 2 03/17/17 12:30 108 16 150/80 97 Nasal Cannula 2 03/17/17 11:30 120 16 162/80 98 Nasal Cannula 2 I/O 03/17/17 03/17/17 03/17/17 03/18/17 03/18/17 03/18/17 07:00 15:00 23:00 07:00 15:00 23:00 Intake Total 240 ml 1431 ml Output Total 500 ml 575 ml Balance -260 ml 856 ml Intake Oral 240 ml 240 ml IV Total 1191 ml Output Urine Total 500 ml 575 ml # Bowel Movements 0 Physical Exam GENERAL: Well-nourished, well-developed patient. SKIN: Warm and dry. HEAD: Normocephalic. EYES: No scleral icterus. No injection or drainage. NECK: Supple, trachea midline. No JVD or lymphadenopathy. CARDIOVASCULAR: Irr Irr without murmurs, gallops, or rubs. RESPIRATORY: Breath sounds equal bilaterally. No accessory muscle use. GASTROINTESTINAL: Abdomen soft, non-tender, nondistended. EXTREMITIES: No cyanosis, or edema. NEUROLOGICAL: Awake, alert, and oriented x 3. Non-focal. Laboratory Laboratory Tests Test 03/17/17 03/18/17 11:30 05:06 Urine Color YELLOW Urine Turbidity CLEAR Urine pH 5.5 Urine Specific [place] 1.013 Urine Protein TRACE mg/dL Urine Glucose (UA) NEG mg/dL Urine Ketones 80 mg/dL Urine Occult Blood NEG Urine Nitrite NEG Urine Bilirubin NEG Urine Urobilinogen LESS THAN 2.0 MG/DL Urine Leukocyte Esterase NEG Urine RBC LESS THAN 1 /hpf Urine WBC 1 /hpf Urine Bacteria OCC /hpf Urine Hyaline Casts 1 /lpf Urine Mucus FEW /lpf Urine Sperm RARE Urine Opiates Screen NEG Urine Barbiturates Screen NEG Urine Amphetamines Screen NEG Urine Benzodiazepines Screen NEG Urine Cocaine Screen NEG Urine Cannabinoids Screen NEG Sodium Level 142 MEQ/L Potassium Level 3.4 MEQ/L Chloride Level 111 MEQ/L Carbon Dioxide Level 22.8 MEQ/L Anion Gap 8 MEQ/L Blood Urea Nitrogen 11 MG/DL Creatinine 0.98 MG/DL Estimat Glomerular Filtration 76 ML/MIN Rate Random Glucose 101 MG/DL Lactic Acid Level 1.0 mmol/L Calcium Level 8.3 MG/DL Imaging Last Impressions Head CT 03/17/17 0000 Signed Impressions: Service Date/Time: Friday, March 17, 2017 10:05 - CONCLUSION: 1. Postsurgical changes status post left frontal parietal craniotomy with areas of encephalomalacia now noted. 2. The ventricular system is more prominent no definite acute hydrocephalus or hemorrhage. Kamlesh Birch MD Chest X-Ray 03/17/17 0000 Signed Impressions: Service Date/Time: Friday, March 17, 2017 10:07 - CONCLUSION: No acute disease. Gildardo Merino MD Assessment and Plan Problem List: (1) Atrial fibrillation with rapid ventricular response Assessment and Plan: No CV complaints Echo- preserved LV function Recommendations: Cont rate control with PO meds Given hx of alcohol withdrawal and fall, not candidate for full OAC. Start Aspirin 325mg PO daily F/U with cardiology OPD Sign off (2) Seizure (3) Alcohol withdrawal Felipe Cartwright MD Mar 18, 2017 10:56
--- NOTE | 2017-03-18 13:13 | EKG ---
Date Performed: 03/17/2017 Time Performed: 09:17:22 PTAGE: 66 years EKG: ATRIAL FIBRILLATION WITH RAPID VENTRICULAR RESPONSE ST & T-WAVE ABNORMALITY, CONSIDER INFER IOR AND LATERAL ISCHEMIA PREVIOUS TRACING : 01/22/2016 11.47 Compared to previous tracing, atrial fibrillation has replaced Sinus rhythm , heart rate has increased, inferior and lateral ST/T changes are now more pronounced. DOCTOR: Norm Marquis Interpretating Date/Time 03/18/2017 13:12:02
[2017-03-19] VITALS (12 sets, daily range): BP systolic 146–173; BP diastolic 82–95; PULSE 54–86; RESP 16–18; TEMP 97.9–98.9; O2SAT 96–97
[2017-03-19] MEDS: SODIUM CHLOR 0.9% 1000 ML INJ 1,000 ML IV SCH (03:00)
[2017-03-19] MEDS: THIAMINE HCL 100 MG TAB PO SCH (08:13)
[2017-03-19] MEDS: MULTIVITAMIN TAB PO SCH (08:13)
[2017-03-19] MEDS: METOPROLOL TARTRATE 25 MG TAB PO SCH (08:13)
--- NOTE | 2017-03-19 08:44 | HHI.PR ---
Subjective Remarks resting comfortably with no distress. no chest pain or sob. no new complaints. Objective Vitals Vital Signs Date Time Temp Pulse Resp B/P Pulse Ox O2 Delivery O2 Flow Rate FiO2 03/19/17 07:01 54 03/19/17 06:00 65 03/19/17 05:00 58 03/19/17 04:00 57 03/19/17 04:00 98.0 66 18 168/95 97 03/19/17 04:00 Room Air 03/19/17 03:00 54 03/19/17 02:00 54 03/19/17 01:00 62 03/19/17 00:00 57 03/19/17 00:00 98.9 60 18 146/82 96 03/19/17 00:00 Room Air 03/18/17 23:00 54 03/18/17 22:00 60 03/18/17 21:00 60 03/18/17 20:00 62 03/18/17 20:00 97.7 72 18 160/93 97 03/18/17 20:00 Room Air 03/18/17 18:00 64 03/18/17 17:00 64 03/18/17 16:00 99.0 64 20 163/93 99 03/18/17 16:00 61 03/18/17 15:00 Room Air 03/18/17 15:00 76 03/18/17 14:00 60 03/18/17 13:00 52 03/18/17 12:00 98.5 58 20 161/89 97 03/18/17 12:00 59 03/18/17 11:00 68 03/18/17 11:00 Room Air 03/18/17 10:00 62 03/18/17 09:00 64 I/O 03/18/17 03/18/17 03/18/17 03/19/17 03/19/17 03/19/17 07:00 15:00 23:00 07:00 15:00 23:00 Intake Total 1431 ml 240 ml Output Total 575 ml 800 ml 450 ml Balance 856 ml -560 ml -450 ml Intake Oral 240 ml 240 ml IV Total 1191 ml Output Urine Total 575 ml 800 ml 450 ml # Bowel Movements 0 1 Result Diagram: 03/17/17 0935 03/18/17 0506 Imaging Last Impressions Head CT 03/17/17 0000 Signed Impressions: Service Date/Time: Friday, March 17, 2017 10:05 - CONCLUSION: 1. Postsurgical changes status post left frontal parietal craniotomy with areas of encephalomalacia now noted. 2. The ventricular system is more prominent no definite acute hydrocephalus or hemorrhage. Kamlesh Birch MD Chest X-Ray 03/17/17 0000 Signed Impressions: Service Date/Time: Friday, March 17, 2017 10:07 - CONCLUSION: No acute disease. Gildardo Merino MD Objective Remarks GENERAL: This is a well-nourished, well-developed patient, in no apparent distress. CARDIOVASCULAR: irregular rhythm without murmurs, gallops, or rubs. RESPIRATORY: Clear to auscultation. Breath sounds equal bilaterally. No wheezes , rales, or rhonchi. GASTROINTESTINAL: Abdomen soft, non-tender, nondistended. Normal, active bowel sounds MUSCULOSKELETAL: Extremities without clubbing, cyanosis, or edema. NEURO: Alert & Oriented x4 to person, place, time, situation. Moves all ext x4 Procedures none Medications and IVs Current Medications Sodium Chloride (NS 1000 ml Inj) 1,000 ml @ 1,000 mls/hr Q1H ONCE IV Last administered on 03/17/17 09:43; Start 03/17/17 at 09:30; Stop 03/17/17 at 10:29 ; Status DC Sodium Chloride 2 ml 2 ml UNSCH PRN IVF FLUSH AFTER USING IV ACCESS; Start at 09:30 Diltiazem HCl/ Sodium Chloride (Cardizem Inj/NS Inj) 125 ml @ 0 mls/hr TITRATE IV Last administered on 03/17/17 22:14; Start 03/17/17 at 09:30; Stop at 02:07; Status DC Sodium Chloride (NS Flush) 2 ml UNSCH PRN IVF FLUSH AFTER USING IV ACCESS; Start 03/17/17 at 09:30 Diltiazem HCl 20 mg 20 mg ONCE ONCE IV Last administered on 03/17/17 09:43; Start 03/17/17 at 09:30; Stop 03/17/17 at 09:33; Status DC Sodium Chloride (NS 1000 ml Inj) 1,000 ml @ 999 mls/hr BOLUS ONCE IV Last administered on 03/17/17 10:44; Start 03/17/17 at 10:45; Stop 03/17/17 at 11:45 ; Status DC Lorazepam 1 mg 1 mg ONCE ONCE IV PUSH Last administered on 03/17/17 10:44; Start 03/17/17 at 10:45; Stop 03/17/17 at 10:46; Status DC Sodium Chloride (NS 1000 ml Inj) 1,000 ml @ 100 mls/hr Q10H IV Last administered on 03/18/17 07:00; Start 03/17/17 at 11:00 Ondansetron HCl (Zofran Inj) 4 mg Q8HR PRN IV PUSH NAUSEA; Start 03/17/17 at 11 :00 Lorazepam (Ativan Inj) 1 mg Q15M PRN IV PUSH SEIZURE; Start 03/17/17 at 11:00 Metoprolol Tartrate (Lopressor) 25 mg Q12HR PO Last administered on 03/19/17 08:13; Start 03/17/17 at 13:00 Flumazenil (Romazicon Inj) 0.2 mg Q1M PRN IV PUSH SEE LABEL COMMENTS; Start at 13:15 Lorazepam (Ativan) 1 mg Q4H PRN PO CIWA 8 - 10; Start 03/17/17 at 13:15 Lorazepam (Ativan Inj) 1 mg Q4H PRN IV PUSH CIWA 8 - 10; Start 03/17/17 at 13: 15 Lorazepam (Ativan) 2 mg Q2H PRN PO CIWA 11-14; Start 03/17/17 at 13:15 Lorazepam (Ativan Inj) 2 mg Q2H PRN IV PUSH CIWA 11-14; Start 03/17/17 at 13:15 Lorazepam (Ativan Inj) 2 mg Q1H PRN IV PUSH CIWA 15-20; Start 03/17/17 at 13:15 Lorazepam (Ativan Inj) 2 mg Q15M PRN IV PUSH CIWA > 20; Start 03/17/17 at 13:15 Thiamine HCl (Vitamin B1) 100 mg DAILY PO Last administered on 03/19/17 08:13 ; Start 03/17/17 at 13:15 Multivitamins (Theragran) 1 tab DAILY PO Last administered on 03/19/17 08:13; Start 03/18/17 at 09:00 Potassium Chloride (KCl) 20 meq ONCE ONCE PO Last administered on 03/17/17 14 :43; Start 03/17/17 at 13:15; Stop 03/17/17 at 14:00; Status DC Potassium Chloride (KCl) 30 meq ONCE ONCE PO Last administered on 03/18/17 11 :31; Start 03/18/17 at 10:45; Stop 03/18/17 at 12:37; Status DC A/P Assessment and Plan A/P - possible seizure with history of brain surgery about a year ago and history of alcohol abuse EEG normal. suspect alcohol-related; no antiepileptics at this time. -atrial fibrillation with rapid ventricular response- now HR controlled. started on PO metoprolol and continue to monitor - echo with EF 65% and no regional wall motion abnormalities. -lactic acidosis- likely due to seizure- resolved. blood cultures negative. -acute kidney injury; resolved. -alcohol abuse; start on CIWA protocol- watch for alcohol withdrawal- counselled on drinking cessation. -mild hypokalemia; replaced. -hypertension; continue metoprolol- f/u as outpatient. -right heel ulcer- wound care consulted- f/u as outpatient with podiatry- this was d/w the patient. -DVT prophylaxis with SCD's Discharge Planning dc home today. see med list. f/u with pcp, cardiology and podiatry. d/w the patient. Mitul Patel MD Mar 19, 2017 08:44
[2017-03-19] MEDS ORDERED: THERTAB15 PO (08:46)
[2017-03-19] MEDS ORDERED: METO25TA3 PO ×2 (08:46→08:52)
[2017-03-19] MEDS ORDERED: ASPI325T33 PO (08:46)
[2017-03-19] MEDS ORDERED: VITA100T2 PO (08:46)
--- NOTE | 2017-03-19 08:47 | HHI.DCPOC ---
Discharge Care Plan Diagnosis: (1) Seizure (2) Alcohol abuse (3) Atrial fibrillation with rapid ventricular response Your Health Problems Are: Anxiety Chest Pain Goals to Promote Your Health * To prevent worsening of your condition and complications * To maintain your health at the optimal level Directions to Meet Your Goals Take your medications as prescribed Follow your dietary instruction Follow activity as directed Keep your appointments as scheduled Take your immunizations and boosters as scheduled If your symptoms worsen call your PCP, if no PCP go to Urgent Care Center or Emergency Room Smoking is Dangerous to Your Health. Avoid second hand smoke Call the 24-hour hour crisis hotline for domestic abuse at Mitul Patel MD Mar 19, 2017 08:47
--- NOTE | 2017-03-19 08:47 | HHI.DS ---
Discharge Summary Admission Date Mar 17, 2017 at 11:00 Discharge Date: Mar 19, 2017 Admitting Diagnosis atrial fibrillation with RVR, seizure, lactic acidosis (1) Seizure ICD Code: R56.9 Diagnosis: Principal (2) Atrial fibrillation with rapid ventricular response ICD Code: I48.91 Diagnosis: Principal Procedures none Brief History - From Admission patient is a 66 y/o male with history of seizure- s/p brain surgery about a year ago, and hypertension, was brought to ER after he had a seizure earlier. according to ER, he was coming back to the house from outside when he had a witnessed seizure. apparently the seizure lasted for about ten minutes. he denies tongue-biting or urinary incontinence.he says that he was on ' seizure medication' till two months ago when he stopped taking it. he was in atrial fibrillation with rapid rate upon arrival to ER. he was awake,alert and oriented at the time of my evaluation. he denies any chest pain or sob. he admits to drinking four glasses of rum daily. CBC/BMP: 03/17/17 0935 03/18/17 0506 Significant Findings Laboratory Tests Test 03/17/17 03/17/17 03/17/17 03/18/17 09:35 09:40 11:30 05:06 Red Blood Count 3.78 MIL/MM3 (4.50-5.90) Mean Corpuscular Volume 103.9 FL (80.0-100.0) Mean Corpuscular Hemoglobin 36.7 PG (27.0-34.0) Potassium Level 3.4 MEQ/L 3.4 MEQ/L (3.5-5.1) (3.5-5.1) Carbon Dioxide Level 18.3 MEQ/L (21.0-32.0) Anion Gap 18 MEQ/L (5-15) Creatinine 1.36 MG/DL (0.60-1.30) Estimat Glomerular Filtration 52 ML/MIN (>89) 76 ML/MIN (>89) Rate Random Glucose 113 MG/DL (74-106) Alkaline Phosphatase 43 U/L (45-117) Troponin I LESS THAN 0.02 NG/ML (0.02-0.05) Lactic Acid Level 6.9 mmol/L (0.4-2.0) Urine Ketones 80 mg/dL (NEG) Urine Bacteria OCC /hpf (NONE) Urine Mucus FEW /lpf (OCC) Urine Sperm RARE (NONE) Chloride Level 111 MEQ/L (98-107) Calcium Level 8.3 MG/DL (8.5-10.1) Imaging Last Impressions Head CT 03/17/17 0000 Signed Impressions: Service Date/Time: Friday, March 17, 2017 10:05 - CONCLUSION: 1. Postsurgical changes status post left frontal parietal craniotomy with areas of encephalomalacia now noted. 2. The ventricular system is more prominent no definite acute hydrocephalus or hemorrhage. Kamlesh Birch MD Chest X-Ray 03/17/17 0000 Signed Impressions: Service Date/Time: Friday, March 17, 2017 10:07 - CONCLUSION: No acute disease. Gildardo Merino MD PE at Discharge GENERAL: This is a well-nourished, well-developed patient, in no apparent distress. CARDIOVASCULAR: irregular rhythm without murmurs, gallops, or rubs. RESPIRATORY: Clear to auscultation. Breath sounds equal bilaterally. No wheezes , rales, or rhonchi. GASTROINTESTINAL: Abdomen soft, non-tender, nondistended. Normal, active bowel sounds MUSCULOSKELETAL: Extremities without clubbing, cyanosis, or edema. NEURO: Alert & Oriented x4 to person, place, time, situation. Moves all ext x4 Hospital Course - possible seizure with history of brain surgery about a year ago and history of alcohol abuse EEG normal. suspect alcohol-related; no antiepileptics at this time. -atrial fibrillation with rapid ventricular response- now HR controlled. started on PO metoprolol and continue to monitor - echo with EF 65% and no regional wall motion abnormalities. -lactic acidosis- likely due to seizure- resolved. blood cultures negative. -acute kidney injury; resolved. -alcohol abuse; start on CIWA protocol- watch for alcohol withdrawal- counselled on drinking cessation. -mild hypokalemia; replaced. -hypertension; continue metoprolol- f/u as outpatient. -right heel ulcer- wound care consulted- f/u as outpatient with podiatry- this was d/w the patient. -DVT prophylaxis with SCD's Pt Condition on Discharge: Good Discharge Disposition: Discharge Home Discharge Time: <= 30 minutes Discharge Instructions DIET: Follow Instructions for: Heart Healthy Diet Activities you can perform: Regular-No Restrictions Follow up Referrals: Cardiology PCP Follow-up Podiatry New Medications: Aspirin DR (Aspirin EC) 325 Mg Tabdr 325 MG PO DAILY a-fib Days 30 Ref 0 TAB Metoprolol Tartrate (Metoprolol Tartrate) 25 Mg Tab 25 MG PO DAILY a-fib #30 Ref 0 TAB Multiple Vitamin (Thera/Beta-Carotene) 1 Tab Tab 1 TAB PO DAILY vitamin Days 30 Ref 0 TAB Thiamine (Vitamin B-1) 100 Mg Tab 100 MG PO DAILY vitamin Days 30 Ref 0 TAB Continued Medications: Amlodipine (Amlodipine) 5 Mg Tab 5 MG PO DAILY Blood Pressure Management #30 Ref 0 TAB Discontinued Medications: Hydralazine (Hydralazine) 50 Mg Tab 50 MG PO TID Take with a meal Blood Pressure Management Ref 0 TAB Lisinopril (Lisinopril) 10 Mg Tab 10 MG PO BID #30 Ref 0 TAB Mitul Patel MD Mar 19, 2017 08:47
== END 2017-03-19 11:16 | disposition home or self-care (01) | DRG 100 ==
LOC: NEPC 09:06 → NEDA 11:00 → HCIS 15:12
PROVIDERS: ADMIT Internal Medicine; ATTEND Internal Medicine
DX: R56.9 Unspecified convulsions (principal); G93.40 Encephalopathy, unspecified; N17.9 Acute kidney failure, unspecified; E87.2 Acidosis; L97.419 Non-pressure chronic ulcer of right heel and midfoot with unspecified severity; G93.89 Other specified disorders of brain; I48.91 Unspecified atrial fibrillation; I10 Essential (primary) hypertension; F10.10 Alcohol abuse, uncomplicated; E87.6 Hypokalemia; Z87.820 Personal history of traumatic brain injury
CPT/HCPCS: 70450; 71010; 80048; 80053; 80307; 81001; 82550; 83605; 84443; 84484; 85025; 87040; 93005; 93306; 95819; 96361; 96365; 96375; 96376; J2060; J7030

== ENCOUNTER 2018-04-13 12:32 | Emergency (ER) | payer MEDICARE, OTHER ==
[~2018-04-13] VITALS: Ht 188 cm; Wt 105.0 kg
[~2018-04-13 12:32] MED LIST changes: +AMLO5TAB2 PO; +ASPI325T33 PO; -BACT800T5 PO; -COLL30OI3 TOP; -HYDRA50 PO; -LACT PO; -LISI-360 PO; -LORTA5 PO; -METO100 PO; +METO25TA3 PO; +THERTAB15 PO; -THIA100T PO; +VITA100T2 PO
[2018-04-13 12:45] VITALS: PULSE 173; RESP 18; O2SAT 89
[2018-04-13 13:00] VITALS: BP 156/96; PULSE 136; RESP 18; TEMP 98.4; O2SAT 94
[2018-04-13] MEDS ORDERED: SODIUM CHLORIDE 0.9% FLUSH 10 ML FLUSH IVF PRN (13:00)
[2018-04-13] MEDS ORDERED: METOPROLOL TARTRATE 5 MG/5 ML VIAL IV PUSH ONE (13:00)
[2018-04-13] MEDS ORDERED: METOPROLOL TARTRATE 50 MG TAB PO ONE (13:00)
--- NOTE | 2018-04-13 13:00 | PD ---
HPI Chief Complaint: Seizure Time Seen by Provider: 12:44 Travel History International Travel<30 days: No Contact w/Intl Traveler<30days: No Traveled to known affect area: No History of Present Illness HPI This patient reportedly had seizure while sitting in his recliner at home. No injury. He did bite his tongue. He has history of seizure disorder, last seizure one year ago. He takes no medication for it. He has history of A. fib as well and presents with A. fib with RVR with a rate of 170. He is lethargic and appears postictal. His history giving ability at this time is quite limited. PFSH Past Medical History Arthritis: No Asthma: No Autoimmune Disease: No Blood Disorders: No Anxiety: No Depression: No Heart Rhythm Problems: No Cancer: No Cardiovascular Problems: Yes (HTN ) Chemotherapy: No Chest Pain: No COPD: No Cerebrovascular Accident: No Diabetes: No Endocrine: No GERD: No Genitourinary: No Hypertension: Yes Immune Disorder: No Kidney Stones: No Musculoskeletal: No Neurologic: No Psychiatric: No Reproductive: No Respiratory: Yes Radiation Therapy: No Renal Failure: No Seizures: No Sickle Cell Disease: No Sleep Apnea: No Thyroid Disease: No Ulcer: No Past Surgical History Abdominal Surgery: No AICD: No Arteriovenous Shunt: No Cardiac Surgery: No Ear Surgery: No Endocrine Surgery: No Eye Surgery: No Genitourinary Surgery: No Gynecologic Surgery: No Insulin Pump: No Joint Replacement: No Neurologic Surgery: Yes (BRAIN SURGERY (NOV 2015)) Oral Surgery: No Pacemaker: No Thoracic Surgery: No Other Surgery: Yes (Brain surgery) Social History Alcohol Use: Yes (10 OZ. 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 SKIN: Focused skin assessment reveals no rash and nodules. Skin is Warm and dry. HEAD: Atraumatic. Normocephalic. EYES: Pupils equal and round. No scleral icterus. No injection or drainage. ENT: No nasal bleeding or discharge. Mucous membranes pink and moist. Some ecchymosis to the distal tongue NECK: Trachea midline. No JVD. CARDIOVASCULAR: He has an irregularly irregular rhythm. No murmur appreciated. Heart rate 170s RESPIRATORY: No accessory muscle use. Clear to auscultation. Breath sounds equal bilaterally. GASTROINTESTINAL: Abdomen soft, non-tender, nondistended. Hepatic and splenic margins not palpable. MUSCULOSKELETAL: No obvious deformities. No clubbing. No cyanosis. No edema. NEUROLOGICAL: Awake but lethargic. No obvious cranial nerve deficits. Motor grossly within normal limits. Normal speech. PSYCHIATRIC: Appropriate mood and affect; insight and judgment poor . Data Data Last Documented VS Vital Signs Date Time Temp Pulse Resp B/P (MAP) Pulse Ox O2 Delivery O2 Flow Rate FiO2 04/13/18 14:33 78 18 153/79 (103) 97 Room Air 04/13/18 13:22 2.00 04/13/18 13:00 98.4 Orders Orders Complete Blood Count With Diff (04/13/18 12:51) Basic Metabolic Panel (Bmp) (04/13/18 12:51) Alcohol (Ethanol) (04/13/18 12:51) Drug Screen, Random Urine (04/13/18 12:51) Electrocardiogram (04/13/18 ) Ct Brain W/O Iv Contrast(Rout) (04/13/18 ) Ecg Monitoring (04/13/18 12:51) Iv Access Insert/Monitor (04/13/18 12:51) Oximetry (04/13/18 12:51) Sodium Chloride 0.9% Flush (Ns Flush) (04/13/18 13:00) Metoprolol Tartrate Inj (Lopressor Inj) (04/13/18 13:00) Metoprolol Tartrate (Lopressor) (04/13/18 13:00) Labs Laboratory Tests Test 04/13/18 13:04 White Blood Count 7.2 TH/MM3 Red Blood Count 4.38 MIL/MM3 Hemoglobin 15.5 GM/DL Hematocrit 45.8 % Mean Corpuscular Volume 104.5 FL Mean Corpuscular Hemoglobin 35.3 PG Mean Corpuscular Hemoglobin Concent 33.8 % Red Cell Distribution Width 13.2 % Platelet Count 189 TH/MM3 Mean Platelet Volume 7.8 FL Neutrophils (%) (Auto) 56.7 % Lymphocytes (%) (Auto) 34.3 % Monocytes (%) (Auto) 6.9 % Eosinophils (%) (Auto) 1.1 % Basophils (%) (Auto) 1.0 % Neutrophils # (Auto) 4.1 TH/MM3 Lymphocytes # (Auto) 2.5 TH/MM3 Monocytes # (Auto) 0.5 TH/MM3 Eosinophils # (Auto) 0.1 TH/MM3 Basophils # (Auto) 0.1 TH/MM3 CBC Comment DIFF FINAL Differential Comment Blood Urea Nitrogen 12 MG/DL Creatinine 1.53 MG/DL Random Glucose 145 MG/DL Calcium Level 9.2 MG/DL Sodium Level 143 MEQ/L Potassium Level 3.7 MEQ/L Chloride Level 108 MEQ/L Carbon Dioxide Level 17.4 MEQ/L Anion Gap 18 MEQ/L Estimat Glomerular Filtration Rate 45 ML/MIN Urine Opiates Screen NEG Urine Barbiturates Screen NEG Urine Amphetamines Screen NEG Urine Benzodiazepines Screen NEG Urine Cocaine Screen NEG Urine Cannabinoids Screen NEG Ethyl Alcohol Level LESS THAN 3 MG/DL MDM Medical Decision Making Medical Screen Exam Complete: Yes Emergency Medical Condition: Yes Medical Record Reviewed: Yes Differential Diagnosis A. fib with RVR, SVT, ventricular tachycardia Narrative Course I have reviewed the patient's electronic medical record. Patient presents postictal after having a seizure. Also he is in A. fib with RVR IV placed and labs sent I reviewed his EKG which shows A. fib with RVR at a rate of 164 Extended cardiac monitoring confirms the same I gave him 5 mg IV Lopressor and 50 mg oral Lopressor. We are out of Cardizem at this hospital. Brain CT is normal Lab studies are normal On reevaluation the patient is insistent on leaving. He signed out AGAINST MEDICAL ADVICE. His mental status is basically back to normal but I wanted to observe him for a while. and daughter are at bedside and agree he is mentally at baseline He is now in a sinus rhythm in the 70s I recommended no driving or swimming and follow-up with primary care and neurology to discuss whether he should be on epileptic medication Diagnosis Primary Impression: Seizure Additional Impression: Atrial fibrillation with RVR Disposition: 07 AGAINST MEDICAL ADVICE Earl Jeff MD April 13, 2018 13:00
[2018-04-13 13:08] VITALS: BP 159/98; PULSE 130; RESP 18; O2SAT 93
[2018-04-13 13:18] LABS: AUTOMATED NEUTROPHIL # 4.1 TH/MM3 (1.8-7.7); BASOPHIL # 0.1 TH/MM3 (0-0.2); EOSINOPHIL # 0.1 TH/MM3 (0-0.4); EOSINOPHIL % 1.1 % (0.0-4.0); HEMATOCRIT 45.8 % (39.0-51.0); HEMOGLOBIN 15.5 GM/DL (13.0-17.0); LYMPH % 34.3 % (9.0-44.0); LYMPHOCYTE # 2.5 TH/MM3 (1.0-4.8); MEAN CELL VOLUME 104.5 FL (80.0-100.0); MEAN CORPUSCULAR HEMOGLOBIN 35.3 PG (27.0-34.0); MEAN CORPUSCULAR HGB CONC 33.8 % (32.0-36.0); MEAN PLATELET VOLUME 7.8 FL (7.0-11.0); MONO % 6.9 % (0.0-8.0); MONOCYTE # 0.5 TH/MM3 (0-0.9); NEUT % 56.7 % (16.0-70.0); PLATELET COUNT 189 TH/MM3 (150-450); RED BLOOD COUNT 4.38 MIL/MM3 (4.50-5.90); RED CELL DISTRIBUTION WIDTH 13.2 % (11.6-17.2); WHITE BLOOD COUNT 7.2 TH/MM3 (4.0-11.0)
[2018-04-13 13:22] VITALS: BP 128/72; PULSE 144; RESP 18; O2SAT 94
[2018-04-13 13:31] LABS: BICARBONATE 17.4 MEQ/L (21.0-32.0); BLOOD UREA NITROGEN 12 MG/DL (7-18); CALCIUM 9.2 MG/DL (8.5-10.1); CHLORIDE 108 MEQ/L (98-107); CREATININE 1.53 MG/DL (0.60-1.30); GLOMERULAR FILTRATION RATE 45 ML/MIN (>89); GLUCOSE,RANDOM 145 MG/DL (74-106); SODIUM (NA) 143 MEQ/L (136-145)
--- NOTE | 2018-04-13 14:10 | RADRPT ---
EXAM DATE/TIME: 04/13/2018 13:38 [facility] COMPARISON: CT BRAIN W/O CONTRAST, March 17, 2017, 10:05. INDICATIONS : Seizure today RADIATION DOSE: 66.34 CTDIvol (mGy) MEDICAL HISTORY : Hypertension. Seizures. History of bleed SURGICAL HISTORY : Craniotomy. ENCOUNTER: Initial ACUITY: 1 day PAIN SCALE: 0/10 LOCATION: cranial TECHNIQUE: Multiple contiguous axial images were obtained of the head. Using automated exposure control and adj ustment of the mA and/or kV according to patient size, radiation dose was kept as low as reasonably a chievable to obtain optimal diagnostic quality images. DICOM format image data is available electro nically for review and comparison. FINDINGS: There is stable left frontal and left temporal encephalomalacia. The right hemisphere is intact and u nremarkable. The posterior fossa and brainstem structures are unremarkable. There is no evidence of i ntracranial mass or hemorrhage. There is nothing to suggest acute infarction. There has been previous left frontoparietal craniotomy. Extracranial structures are otherwise intact and unremarkable. CONCLUSION: No acute intracranial findings Vladimir Lunsford MD on April 13, 2018 at 14:06 Board Certified Radiologist. This report was verified electronically.
[2018-04-13 14:33] VITALS: BP 153/79; PULSE 78; RESP 18; O2SAT 97
--- NOTE | 2018-04-14 16:46 | EKG ---
Date Performed: 04/13/2018 Time Performed: 12:49:22 PTAGE: 67 years EKG: ATRIAL FIBRILLATION WITH RAPID VENTRICULAR RESPONSE NONSPECIFIC ST & T-WAVE ABNORMALITY ABN ORMAL RHYTHM ECG INTERPRETATION BASED ON A DEFAULT AGE OF 40 YEARS PREVIOUS TRACING : 03/17/2017 09.17 Since the previous tracing, no significant change not ed DOCTOR: Pancho Lisa Interpretating Date/Time 04/14/2018 16:44:28
== END 2018-04-13 15:07 | disposition left against medical advice (07) ==
LOC: NEPC 12:32
DX: G40.909 Epilepsy, unspecified, not intractable, without status epilepticus (principal); I48.91 Unspecified atrial fibrillation; I10 Essential (primary) hypertension
CPT/HCPCS: 70450; 80048; 80307; 85025; 93005; 96374